=== PATIENT | female | born 1985 | race Hispanic/Latino ===

== ENCOUNTER 2016-05-15 18:30 | Emergency (ER) ==
[2016-05-15] MEDS ORDERED: SOLU-MEDROL ONE (18:37)
[2016-05-15] MEDS ORDERED: BENADRYL ONE (18:37)
[2016-05-15] MEDS ORDERED: DUONEB (A & A) INH ONE (18:38)
[2016-05-15] MEDS ORDERED: BENADRYL IV ONE (18:38)
[2016-05-15] MEDS ORDERED: SOLU-MEDROL IV ONE (18:38)
[2016-05-15] MEDS ORDERED: PEPCID IV ONE (18:53)
[2016-05-15] MEDS ORDERED: SODIUM CHLORIDE 0.9% INJ ONE (18:53)
--- NOTE | 2016-05-15 19:00 | PROVIDER DOCUMENTATION ---
HPI-General Adult - General Chief Complaint: Allergic Reaction Stated Complaint: ALLERGIC REACTION Time Seen by Provider: 05/15/16 18:38 Allergies/Adverse Reactions: Patient Allergies Allergy/AdvReac Type Severity Reaction Status Date / Time No Known Allergies Allergy Verified 05/15/16 18:53 Home Medications: Home Medication List Medication Instructions Recorded Confirmed Last Taken Type RX: No Home Medications 05/15/16 05/15/16 Unknown History - History of Present Illness -Gen Adult Nature of Presenting Problems: Pt comes in with complaint of allergic reaction to what appears to be a pine nut. She states she doesn't any PMH to speak of. Her is at bedside she is and he is acting as a the district administrator. He states that she had eaten these in the past without incident however she is having facial swelling and feels as if her throat is swelling. She has noted wheezing on arrival. Review of Systems - Adult - REVIEW OF SYSTEMS - ADULT Constitutional: reports: no symptoms reported. denies: chills, fever, fatique, night sweats Eyes: reports: see HPI (itching), other. denies: discharge, dry eyes, decreased vision, blurred vision, eye pain, redness Ears, Nose, Mouth & Throat: reports: see HPI, throat swelling. denies: ear discharge, ear pain, loose teeth, mouth/dental pain, hoarseness, throat pain Cardiovascular: reports: no symptoms reported. denies: chest pain, edema, heart murmur, orthopnea, palpitations, poor circulation, PND, syncope Respiratory: reports: see HPI, shortness of breath, wheezing. denies: chronic cough, cough, dyspnea on exertion, excessive sputum production, hemoptysis, pleurisy Gastrointestinal: reports: no symptoms reported. denies: see HPI, constipation , diarrhea, difficulty swallowing, nausea, poor appetite, rectal bleeding, vomiting Genitourinary: reports: no symptoms reported. denies: dysuria, discharge, frequency, flank pain, hesitency, incontinence, urinary retention, urgency Musculoskeletal: reports: no symptoms reported. denies: bone pain, back pain, frequent leg cramps, joint swelling, muscle aches, muscle weakness, neck pain Integumentary: reports: no symptoms reported. denies: hives, hair loss, itching , mole changes, nail changes, skin sores/ulcer, skin thickening Neurological: reports: no symptoms reported. denies: dizziness/vertigo, headache/migraines, loss of balance, paresthesia, slurred speech, syncope, tremors Psychiatric: reports: no symptoms reported. denies: anti-depressant use, alcohol/drug dependence, depression, emotional problems, panic attacks, suicidal thoughts Endocrine: reports: no symptoms reported. denies: change in skin pigment, excessive sweating, goiter, cold intolerance, increased hunger, increased thirst , polyuria Hematologic/Lymphatic: reports: no symptoms reported. denies: blood clots, low blood count, swollen lymph nodes, transfusions Allergic/Immunologic: reports: see HPI, allergic reactions, food allergy. denies: allergic rhinitis, asthma, hay fever, hives, positive PPD, urticaria All Other Systems: Reviewed and Negative Past History - Adult - PAST MEDICAL HISTORY-ADULT Review of Records: reports: Old Records Reviewed, Nursing Assessment Review, Medications Reviewed, Social history reviewed & non-contributory. Major Childhood Illnesses: reports: denies history Cardiovascular: reports: denies history Respiratory: reports: denies history Gastrointestinal: reports: denies history Obstetrical/Gynecological: reports: denies history Genitourinary: reports: denies history Musculoskeletal: reports: denies history Neurological: reports: denies history Psychiatric: reports: denies history Endocrine/Immune: reports: denies history Other Conditions: reports: denies history - PRIOR SURGERIES/PROCEDURES Surgical/Procedure History: reports: BTL - PRIOR HOSPITALIZATIONS Prior Hospitalizations: reports: none - IMMUNIZATION STATUS Childhood Immunizations: See Nurse Assessment Flu Vaccine: See Nurse Assessment - FAMILY HISTORY Family History: reviewed, not pertinent - SOCIAL HISTORY Smoking: denies Substance Use: none/never Alcohol Use Frequency: never Living Situation: family Physical Exam-General - PHYSICAL EXAM-ADULT Initial Vital Signs Reviewed: Yes - CONSTITUTIONAL General Appearance: alert, moderate distress - EYES Eyes: PERRL/EOMI, pink conjunctivae, fundi clear, no AV nicking, anisocoria, other (orbital swelling) - HEAD, EARS, NOSE, MOUTH & THROAT HENMT: normocephalic/atraumatic, moist mucous membranes, other (tonsillar swelling) - NECK Neck: non-tender, full range of motion, supple - RESPIRATORY Respiratory: chest non-tender, accessory muscle use, wheezing, increased rate - CARDIOVASCULAR Cardiovascular: normal peripheral pulses, regular rate, rhythm, no edema - GASTROINTESTINAL (ABDOMEN) Abdominal Exam: normal bowel sounds, non tender, soft, no organomegaly - GENITOURINARY Female Genitalia/Pelvic Exam: deferred - MUSCULOSKELETAL Back Exam: normal inspection, no CVA tenderness, no vertebral tenderness Extremity: normal range of motion, non-tender, normal gait, normal inspection - SKIN Integumentary: normal color, normal turgor, warm/dry, other (itching) - NEUROLOGIC Neurologic: executive assistant II-XII nml as tested, grossly normal, no motor/sensory deficits - PSYCHIATRIC Psych/Mental Status: normal mood/affect, normal thought content, normal thought process, oriented x 3 Progress - PLAN OF CARE/RESULTS Progress/Plan/Lab Results: Laboratory Tests 05/15/16 19:36 WBC 11.50 H RBC 5.04 Hgb 11.7 L Hct 36.3 L MCV 72.0 L MCH 23.2 L MCHC 32.2 L RDW Std Deviation 16.3 H Plt Count 408 H MPV 9.5 Immature Gran % (Auto) 1.0 H Neut % (Auto) 52.4 Lymph % (Auto) 37.6 [place] % (Auto) 5.1 Eos % (Auto) 3.5 Baso % (Auto) 0.4 Immature Gran # (Auto) 0.11 H Neut # (Auto) 6.03 Lymph # (Auto) 4.32 H [place] # (Auto) 0.59 Eos # (Auto) 0.40 Baso # (Auto) 0.05 Orders Category Date Time Status CHEST-1 VIEW [RAD] Stat Exams 05/15/16 18:39 Taken BMP [BASIC METABOLIC PANEL] [CHEM] Stat Lab 05/15/16 19:36 Received CBC WITH DIFF [HEME] Stat Lab 05/15/16 19:36 Results Albuterol 2.5MG/Ipratrop 0.5MG [Duoneb (A & A)] Med 05/15/16 18:38 Discontinued 3 ml INH NOW ONE Diphenhydramine [Benadryl] Med 05/15/16 18:37 Discontinued 50 mg .ROUTE .STK-MED ONE Diphenhydramine [Benadryl] Med 05/15/16 18:38 Discontinued 50 mg IV NOW ONE Famotidine [Pepcid] Med 05/15/16 18:53 Discontinued 20 mg IV NOW ONE Methylprednisolone Sod Succ [Solu-Medrol] Med 05/15/16 18:37 Discontinued 125 mg .ROUTE .STK-MED ONE Methylprednisolone Sod Succ [Solu-Medrol] Med 05/15/16 18:38 Discontinued 125 mg IV NOW ONE Sodium Chloride 0.9% Med 05/15/16 18:53 Discontinued 5 - 10 ml INJ NOW ONE Aerosol Treatments Routine Oth 05/15/16 18:39 Completed Aerosol Treatments Stat Oth 05/15/16 18:39 Completed Vital Signs - 24 hr 05/15/16 05/15/16 05/15/16 18:45 18:48 18:58 Pulse Rate 115 H 96 H 91 H Respiratory 24 21 22 Rate Blood Pressure 161/35 159/100 O2 Sat by Pulse 100 97 100 Oximetry 05/15/16 05/15/16 05/15/16 19:00 19:15 19:30 Pulse Rate 81 84 81 Respiratory 12 15 18 Rate Blood Pressure 159/100 166/97 143/101 O2 Sat by Pulse 100 100 100 Oximetry 05/15/16 19:47 Pulse Rate 76 Respiratory 17 Rate Blood Pressure 136/92 O2 Sat by Pulse 98 Oximetry - REASSESSMENT Reassessment #1 Time Reassessed: 20:03 Status: improving Reassessment Comment: Pt feeling better no wheezing or sob - XRAY 1 XRAY Study: Chest XRAY Interpretation: nad(hcb) Departure - Departure Time of Disposition Order: 20:03 (use benadryl for itch) DIAGNOSIS: Allergic reaction Qualifiers: Encounter type: initial encounter Qualified Code(s): T78.40XA - Allergy, unspecified, initial encounter Disposition: HOME 01 Certified Medical Emergency: Emergent Condition: Good Additional Instructions: use Benadryl for any additional itch. follow up with PCP if needed Referrals: None,PCP [Primary Care Provider] - Attestation - Physician/ KOREY Attestation Patient care was provided by Advanced Practice Provider:: Yes Advanced Practice Provider:: Azael Moseley Advanced Practice Provider documentation review:: The Mid-level provider documentation, treatment plan and medical decision making was reviewed by the physician who agrees with all treatment and medical decision making by the MLP.
[2016-05-15 19:59] LABS: BASO% 0.4 % (0.0-0.8); EOS% 3.5 % (0.0-10.0); HEMATOCRIT 36.3 % (37.0-47.0); HEMOGLOBIN 11.7 g/dL (12.0-16.0); IMM GRAN# 0.11 X1000 (0.0-0.04); LYMPH# 4.32 X1000 (1.2-3.4); LYMPH% 37.6 % (20.5-51.1); MANUAL DIFF NEEDED? YES; MCH 23.2 PG (27-31); MCHC 32.2 g/dL (33-37); MONO# 0.59 X1000 (0.11-0.59); MONO% 5.1 % (1.7-9.3); MPV 9.5 FL (7.4-10.4); NEUT% 52.4 % (42.2-75.2); PLT 408 X1000 (130-400); RBC 5.04 XMIL (4.2-5.4)
[2016-05-15 20:10] LABS: AGAP 16; BUN 15 mg/dL (8-22); CALCIUM 9.5 mg/dL (8.8-10.2); CHLORIDE 104 mmol/L (98-107); COSMO 284; POTASSIUM 3.5 mmol/L (3.5-5.1); SODIUM 141 mmol/L (136-145); TCO2 21 mmol/L (25-35)
[2016-05-15 20:13] VITALS: BP 132/96
[2016-05-15 21:18] LABS: BANDS 2 % (0-1); EOS 4 % (1-10); LYMPHS 20 % (21-51); MONO 4 % (1-9)
[2016-05-15 21:20] LABS: HYPOCHROM 1+; POLYCHROM OCCASIONAL
--- NOTE | 2016-05-16 11:21 | Diag Imaging Result Document ---
PROCEDURE NAME: CHEST-1 VIEW - 05/15/2016 PORTABLE CHEST: COMPARISON: 07/14/2014. FINDINGS: Heart size is normal. The lungs appear clear. There is no pleural effusion or pneumothorax seen. IMPRESSION: No evidence of acute disease.
== END 2016-05-15 20:36 | disposition home or self-care (01) ==
LOC: ED 18:30
DX: T78.40XA Allergy, unspecified, initial encounter (principal); R22.0 Localized swelling, mass and lump, head; L29.9 Pruritus, unspecified; R22.1 Localized swelling, mass and lump, neck; R06.02 Shortness of breath; R06.2 Wheezing
CPT/HCPCS: 71010; 80048; 85025; 94640; 99283; J1200; J2930; S0028